=== PATIENT | male | born 1990 | race Asian ===

== ENCOUNTER 2020-03-15 16:23 | Emergency (ER) | payer OTHER ==
[~2020-03-15] VITALS: Ht 177.8 cm; Wt 71.7 kg
[2020-03-15 16:37] VITALS: Ht 177.8 cm; Wt 71.7 kg
[2020-03-15 22:15] LABS: BASOPHIL % 0.5 % (0.2-1.5); PLATELET COUNT 198 x10^3mcL (152-348); RED CELL DISTRIBUTION WIDTH 13.3 % (12.1-16.2)
[2020-03-15 22:17] LABS: rbc morphology (normal/abnorm) NORMAL (NORMAL)
[2020-03-15 22:43] LABS: CALCIUM 9.4 mg/dL (8.5-10.1); CARBON DIOXIDE 30.2 mmol/L (21-32); CHLORIDE SERUM 102 mmol/L (98-107); CREATININE SERUM 1.1 mg/dL (0.7-1.3); GFR1 > 60 mL/min; GLUCOSE SERUM 98 mg/dL (74-106); POTASSIUM SERUM 3.8 mmol/L (3.5-5.1); SODIUM SERUM 143 mmol/L (136-145)
[2020-03-15 22:50] LABS: ALBUMIN 4.8 g/dL (3.4-5.0); ALKALINE PHOSPHATASE 70 U/L (46-116); ALT/SGPT 19 U/L (16-63); AST/SGOT 16 U/L (15-37); BILIRUBIN TOTAL 0.6 mg/dL (0.20-1.00); TOTAL PROTEIN, SERUM 8.2 g/dL (6.4-8.2)
[2020-03-16 00:14] VITALS: BP 121/69
== END 2020-03-16 00:14 | disposition home or self-care (01) ==
LOC: ED 16:23
PROVIDERS: Emergency Medicine
DX: R07.89 Other chest pain (principal); J02.9 Acute pharyngitis, unspecified; M79.606 Pain in leg, unspecified; Z20.828 Contact with and (suspected) exposure to other viral communicable diseases
CPT/HCPCS: 87804; U0003